=== PATIENT | male | born 1970 | race American Indian/Alaskan Native ===

== ENCOUNTER 2022-03-25 15:35 | Inpatient (IN) | payer OTHER ==
[2022-03-25 17:25] VITALS: BMI 20.9
[2022-03-25] MEDS ORDERED: MAGNESIUM CITRATE 300 ML BOTTLE PO PRN (17:42)
[2022-03-25] MEDS ORDERED: LORazepam 1 MG TABLET PO PRN (17:42)
[2022-03-25] MEDS ORDERED: DICYCLOMINE HCL 10 MG CAPSULE PO PRN (17:42)
[2022-03-25] MEDS ORDERED: LOPERAMIDE HCL 2 MG CAPSULE PO PRN (17:42)
[2022-03-25] MEDS ORDERED: BENZOCAINE/MENTHOL (CHLORASEPTIC ) LOZENGE MM PRN (17:42)
[2022-03-25] MEDS ORDERED: BISMUTH SUBSALICYLATE 524 MG/30 ML PO PRN (17:42)
[2022-03-25] MEDS ORDERED: ACETAMINOPHEN 325 MG TABLET (FP) PO PRN ×2 (17:42)
[2022-03-25] MEDS ORDERED: IBUPROFEN 400 MG TABLET (FP) PO PRN (17:42)
[2022-03-25] MEDS ORDERED: MAGNESIUM HYDROX 2400MG/30ML ORAL SUSPENSION 30 ML CUP PO PRN (17:42)
[2022-03-25] MEDS ORDERED: ONDANSETRON *ODT* 4 MG TABLET SL PRN (17:42)
[2022-03-25] MEDS ORDERED: MAG HYDROX/AL HYDROX/SIMETH 30 ML UNIT-DOSE CUP PO PRN (17:42)
[2022-03-25] MEDS ORDERED: METHOCARBAMOL 500 MG TABLET PO PRN (17:42)
[2022-03-25] MEDS: IBUPROFEN 600 MG TABLET (FP) PO PRN (19:22)
[2022-03-25] MEDS: MELATONIN 5 MG TABLETS PO SCH (22:15)
[2022-03-25] MEDS: LORazepam 2 MG TABLET PO SCH (22:15)
[2022-03-25] MEDS: THIAMINE HCL 100 MG TABLET (FP) PO SCH (22:15)
[2022-03-26] MEDS: LORazepam 2 MG TABLET PO SCH ×4 (05:38→23:23)
[2022-03-26] MEDS: hydrOXYzine PAMOATE 25 MG CAPSULE (FP) PO PRN (05:38)
[2022-03-26] MEDS: NICOTINE 10 MG CARTRIDGE (INHALER) IH PRN (05:39)
[2022-03-26] MEDS ORDERED: ALBUTEROL SO4 HFA INHALER IH PRN (08:10)
[2022-03-26] MEDS: PRENATAL VITAMINS W/ FOLIC ACID TABLET (FP) PO SCH (11:01)
[2022-03-26 14:26] LABS: HEMATOCRIT 39.2 % (35.4-49); HEMOGLOBIN 12.9 GM/dL (11.7-16.9); MCH 35.4 pg (25.7-33.7); MEAN CELL VOLUME 107.1 fl (80-96); MEAN PLT VOLUME 8.8 fl (7.5-11.1); PLATELET COUNT 198 10^3/uL (134-434); RBC 3.66 M/mm3 (4.00-5.60); RDW 18.5 % (11.9-15.9); WHITE BLOOD COUNT 5.7 K/mm3 (4.0-10.0)
[2022-03-26 14:57] LABS: BLOOD UREA NITROGEN 9.4 mg/dL (7-18)
[2022-03-26 14:59] LABS: CALCIUM 8.9 mg/dL (8.5-10.1)
[2022-03-26 15:00] LABS: CREATININE 0.6 mg/dL (0.55-1.3)
[2022-03-26 15:01] LABS: TOT PROT 6.4 g/dl (6.4-8.2)
[2022-03-26 15:02] LABS: BILIRUBIN,TOTAL 0.6 mg/dL (0.2-1)
[2022-03-26] MEDS: THIAMINE HCL 100 MG TABLET (FP) PO SCH (23:23)
[2022-03-26] MEDS: MELATONIN 5 MG TABLETS PO SCH (23:23)
[2022-03-27] MEDS: LORazepam 1 MG TABLET PO SCH ×4 (07:27→22:22)
[2022-03-27] MEDS: PRENATAL VITAMINS W/ FOLIC ACID TABLET (FP) PO SCH (10:18)
[2022-03-27] MEDS: IBUPROFEN 600 MG TABLET (FP) PO PRN (10:20)
[2022-03-27] MEDS: NICOTINE 10 MG CARTRIDGE (INHALER) IH PRN (19:53)
[2022-03-27] MEDS: THIAMINE HCL 100 MG TABLET (FP) PO SCH (22:22)
[2022-03-27] MEDS: MELATONIN 5 MG TABLETS PO SCH (22:22)
[2022-03-28] MEDS ORDERED: LORazepam 0.5 MG TABLET PO PRN
[2022-03-28] MEDS: LORazepam 0.5 MG TABLET PO SCH ×4 (05:04→22:17)
[2022-03-28] MEDS: PRENATAL VITAMINS W/ FOLIC ACID TABLET (FP) PO SCH (10:22)
[2022-03-28] MEDS: IBUPROFEN 600 MG TABLET (FP) PO PRN (10:23)
[2022-03-28] MEDS: MELATONIN 5 MG TABLETS PO SCH (22:16)
[2022-03-28] MEDS: THIAMINE HCL 100 MG TABLET (FP) PO SCH (22:16)
[2022-03-29] MEDS ORDERED: LORazepam 0.5 MG TABLET PO ONE (05:00)
[2022-03-29] MEDS: hydrOXYzine PAMOATE 25 MG CAPSULE (FP) PO PRN (05:24)
[2022-03-29 09:49] VITALS: BP 168/88; PULSE 54; TEMP 97.3
[2022-03-29] MEDS: PRENATAL VITAMINS W/ FOLIC ACID TABLET (FP) PO SCH (10:33)
== END 2022-03-29 11:05 | disposition home or self-care (01) | DRG 775 ==
LOC: YASAS 15:35 → Y3N 18:18
PROVIDERS: ADMIT Allergy & Immunology; ATTEND Surgery
PROC: HZ2ZZZZ Detoxification Services for Substance Abuse Treatment (ICD-10-PCS; principal; 2022-03-25)
DX: F10.230 Alcohol dependence with withdrawal, uncomplicated (principal); F17.210 Nicotine dependence, cigarettes, uncomplicated; J44.9 Chronic obstructive pulmonary disease, unspecified; J45.40 Moderate persistent asthma, uncomplicated; Z86.59 Personal history of other mental and behavioral disorders; Z99.89 Dependence on other enabling machines and devices; Z59.01 Sheltered homelessness
CPT/HCPCS: 36415; 80053; 85027; 86780; C9803-CS; U0003; U0005